=== PATIENT | male | born 1955 | race Caucasian/White ===

== ENCOUNTER 2021-09-02 08:03 | Day surgery (SDC) | payer MEDICARE, MEDICAID, SELFPAY ==
--- NOTE | ~2021-09-02 | US_ITS ---
EXAMINATION: ULTRASOUND-GUIDED PARACENTESIS CLINICAL INFORMATION: Ascites COMPARISON: None TECHNIQUE: Procedure risks and benefits including bleeding, infection and low blood pressure were discussed with the patient and informed consent was obtained. The right lower quadrant was prepped and draped in the usual sterile fashion. The skin and soft tissues were anesthetized with 1% lidocaine plain. Using ultrasound guidance and a 5 [place] Angiocath, access to the ascitic fluid was obtained. 7.6 L of clear yellow fluid was removed. Diagnostic specimen was sent for cell count, Gram stain, culture and cytology. FINDINGS: There is a large amount of ascites. US/US paracentesis abd w/image IMPRESSION: Ultrasound-guided paracentesis.
[2021-09-02 08:36] LABS: MANUAL DIFF FLAG NO
[2021-09-02 08:38] LABS: Basophils Percent Auto 0.6 % (0-2); Eosinophils Absolute Auto 0.1 X10*3/uL (0.0-0.4); Eosinophils Percent Auto 1.5 % (0-4); Hematocrit 36.7 % (42-52); Hemoglobin 11.9 g/dl (14.0-18.0); Imm Gran Abs Auto 0.02 X10*3/uL (0.00-0.03); Imm Gran Pct Auto 0.4 % (0.0-0.4); Lymphocytes Absolute Auto 1.2 X10*3/uL (1.2-4.9); Lymphocytes Percent Auto 21.9 % (20-40); Mean Corpuscular HGB Conc 32.4 g/dl (31.0-36.0); Mean Corpuscular Hemoglobin 31.5 pg (27.0-33.0); Mean Corpuscular Volume 97.1 fL (80-98); Mean Platelet Volume 9.6 fL (9.4-12.4); Monocytes Absolute Auto 0.8 X10*3/uL (0.1-1.2); Monocytes Percent Auto 13.8 % (2-11); Neutrophils Absolute Auto 3.4 X10*3/uL (2.0-8.3); Neutrophils Percent Auto 61.8 % (45-73); Red Blood Count 3.78 X10*6/uL (4.60-5.80); Red Cell Distribution Width 17.6 % (11.0-16.0); White Blood Count 5.4 X10*3/uL (4.8-10.8)
[2021-09-02 08:45] LABS: INTERNATIONAL NORM RATIO 1.4 (0.9-1.1)
[2021-09-02 08:48] LABS: Partial Thromboplastin Time 37.1 SEC (24.1-38.0)
[2021-09-02 08:49] VITALS: BP 111/86; PULSE 89; RESP 18; TEMP 37.2; O2SAT 95; BMI 29.9
[2021-09-02 09:28] LABS: Platelet Count 63 X10*3/uL (160-400)
--- NOTE | 2021-09-02 10:29 | HO.RADPN ---
RADIOLOGY Narrative Narrative: RLQ paracentesis performed using 5 fr angiocath. L clear fluid removed. Specimen sent for noemy count, gram stain and culture and cytology.
[2021-09-02 11:24] VITALS: BP 116/78; PULSE 79; RESP 18; TEMP 36.6; O2SAT 96
[2021-09-02] MEDS: Lidocaine HCl 1 % MPF 5 ML VIAL SUBCUT (11:33)
[2021-09-02 11:35] LABS: MN% 91.3 %; PMN% 8.7 %; WBC Peritoneal Fluid 0.269 X10*3/uL
[2021-09-02 11:39] LABS: RBC Peritoneal Fluid < 0.002 X10*6/uL
[2021-09-02 11:55] VITALS: BP 96/53; PULSE 78; RESP 18; O2SAT 97
[2021-09-02 12:24] VITALS: BP 103/61; PULSE 74; RESP 18; TEMP 36.9; O2SAT 97
[2021-09-02 13:04] LABS: Basophils Peritoneal Fl 0 %; Eosinophils Peritoneal Fl 0 %; Lymphocyte Peritoneal Fl 18 %; Monocytes Peritoneal Fl 41 %; Neutrophils Peritoneal Fluid 3 %; Other Peritioneal Fl 38 %
[2021-09-02 13:05] LABS: BF Shift QC OK YES; Man Diluent Bkgrd OK YES
== END 2021-09-02 13:16 | disposition home or self-care (01) ==
PROVIDERS: Visit Provider Radiology Diagnostic Radiology
DX: R18.8 Other ascites (principal); I10 Essential (primary) hypertension; J44.9 Chronic obstructive pulmonary disease, unspecified; Z79.899 Other long term (current) drug therapy
CPT/HCPCS: 36415; 49083; 85025; 85610; 85730; 87070; 87073; 87205; 88112; 89051

== ENCOUNTER 2021-09-30 06:23 | Emergency (ER) | payer MEDICARE, MEDICAID, SELFPAY ==
--- NOTE | ~2021-09-30 | XR_ITS ---
EXAMINATION: XR CHEST CLINICAL INFORMATION: General with hypoxia. Rule out aspiration COMPARISON: None TECHNIQUE: AP portable view of the chest was obtained. FINDINGS: There is elevation of the left hemidiaphragm with what appears to be some bilateral discoid scarring or atelectasis. On the provided film I cannot be sure there is some airspace disease at the left base. There is an old fracture involving the right clavicle. XR/XR chest 1V IMPRESSION: Left hemidiaphragm elevation with questionable left base disease. Comparison with outside studies would be of help in evaluation chronicity of the above findings.
[2021-09-30 06:36] VITALS: BP 104/49; BP 115/70; PULSE 74; RESP 19; TEMP 36.6; O2SAT 92; BMI 34.6
--- NOTE | 2021-09-30 06:37 | ECG_ITS ---
Test Reason : sob Blood Pressure : / mmHG Vent. Rate : 073 BPM Atrial Rate : 073 BPM P-R Int : 162 ms QRS Dur : 088 ms QT Int : 444 ms P-R-T Axes : 057 -06 073 degrees QTc Int : 489 ms Sinus rhythm with Premature atrial complexes Prolonged QT Low voltage QRS Nonspecific ST abnormality Anterior leads Abnormal ECG No previous ECGs available Referred By: Enmanuel Muhammad Electronically Signed By:TARUN GARCIA MD
--- NOTE | 2021-09-30 06:39 | ED_ITS ---
HPI - SOB/Dyspnea General Chief Complaint: Dyspnea Stated Complaint: SOB Time Seen by Provider: 09/30/21 06:37 Source: patient Mode of arrival: EMS Limitations: other (Patient has dysarthric speech which is difficult to comprehend) History of Present Illness HPI Narrative: 66-year-old male who presents emergency department for evaluation of shortness of breath and hypoxia. The information came from the paramedics. The patient was drinking water and then began to cough and choke. After choking, the patient became hypoxic with O2 saturations as low as 88% on room air. Patient was placed on 4 L of oxygen via nasal cannula his O2 saturation came up to 93%. There was no reported illness prior to the patient choking on water. The patient is in a long-term care facility. He has dysarthric speech which is very difficult to comprehend. He has no complaints. Does not appear to be in distress. The following information was on the universal transfer form: Resident woke up with decreased oxygen saturation. Patient is not on chronic oxygen management. O2 saturation 92% with 4 L nasal cannula with increased respirations when titrating oxygen saturation could not be maintained. Blind in 1 eye. Crush medications and nectar thickened fluids. COVID vaccinated. Incontinent. MOLST form reviewed: Patient is a full code, intubation and ventilation Patient is a resident at [facility], PCP is Theresa Brooks. Related Data Previous Rx's Medication Instructions Recorded cefuroxime axetil 500 mg tablet 500 mg PO Q12H 5 Days #10 tab 09/30/21 Allergies Allergy/AdvReac Type Severity Reaction Status Date / Time No Known Allergies Allergy Verified 09/02/21 08:12 Review of Systems Review of Systems: Yes Other (Limited secondary dysarthric speech which is difficult to comprehend) Neurologic: Reports Abnormal speech present (Dysarthric speech) [facility] Past Medical History [facility] Narrative: Past medical history: Schizoaffective disorder, traumatic brain injury, depression, right-sided hemiplegia, COPD, GERD, BPH, ataxia, hypertension, thrombocytopenia, dysphagia oral pharyngeal phase, left eye blindness. Social history: The patient is a resident of [facility]. He denies tobacco, alcohol and drug use. Social History Social History Alcohol intake: never Patient Tobacco Use Status: Never used Tobacco Use of substances other than those prescribed or required for medical reasons: No Advance Directives: No Advance Directives Information Provided: Yes Physical Exam Vital Signs: Vital Signs: Last Vital Signs Temp 98.0 F 09/30/21 07:41 Pulse 71 09/30/21 07:41 Resp 18 09/30/21 07:41 BP 107/71 09/30/21 07:41 Pulse Ox 94 09/30/21 07:41 Body Mass Index 34.6 Const: Other: Awake, alert, male patient, slow, dysarthric speech which is difficult to comprehend, he does answer questions appropriately, he does not appear to be in distress. HENMT: Head: Yes normal to inspection, Yes normocephalic and Yes atraumatic Ears: external ears normal General nose exam: Normal external nose present Face and sinus: Yes normal facial exam Mouth: other (Dry mucous membrane) Throat: Yes posterior oropharynx normal Eyes: Other: The patient is blind in his left eye Neck: Neck: Yes normal visual inspection, Yes no lymphadenopathy, Yes trachea midline and Yes supple Chest: Chest palpation & inspection: normal inspection of the chest and normal palpation of entire chest wall Resp: Other: Breath sounds are symmetric bilaterally, the patient has rales at both bases and diffuse rhonchi with no wheezing Cardio: Rate: regular rate Rhythm: regular rhythm Heart sounds: S1 normal heart sound present, S2 normal heart sound present and no murmurs GI: Inspection: Yes normal to inspection Palpation (GI): Soft to palpation, nontender and no guarding Auscultation: normal bowel sounds : General: Yes no CVA tenderness Back/Spine/Pelvis: Back: no CVA tenderness Skin: General skin exam: no rashes or lesions noted Neuro: Other: Patient's left eye is blind Cognition (Neuro): normal cognition Speech: Abnormal speech present (Dysarthric speech) Motor exam (neuro): Other motor observations present (Right upper and right lower extremity weakness compared to left) Extrem: Other: 2+ pitting edema bilaterally symmetric Psych: Appearance: grossly normal Affect: normal affect Attitude: cooperative Course Course Course Narrative: 66-year-old male brought to emergency department by ambulance from his long-term care facility for shortness of breath and hypoxia. The fac ility transfer note states the patient woke up short of breath with O2 saturations in the 88% range, paramedics however report that the patient may have aspirated after drinking this morning. Patient's vital signs revealed that he was afebrile with a temperature of 98?. Blood pressure was 104/49, respiratory rate was 19, pulse was 74 and O2 saturation was 92% on room air. Lung exam revealed rales at the bases with diffuse rhonchi. Extremity exam reveals 2+ pitting edema. Will obtain the following: CBC, CMP, BNP, COVID-19, lactic acid, lipase, troponin, urinalysis blood cultures x2. EKG and chest x- ray will also be obtained 09: Laboratory evaluation revealed a normal WBC of 4900. [place] [address], this is chronic. Bicarb was elevated at 31. BNP was only 63. High sensitivity troponin was detectable at 4.2 but not elevated. Urinalysis revealed 1+ blood, 3+ leukocyte esterase. Microscopic revealed 0-2 rbc's, 15-29 WBCs and 3+ bacteria. Chest x-ray revealed a elevated left hemidiaphragm, on my review of this x-ray do not see anything that looks like an acute pneumonia. The patient has not required any oxygen since being here in the emerg ency department. He does not appear to be in respiratory distress that I do not see any obvious pneumonia at this time on the patient's chest x-ray. The patient's laboratory evaluation is consistent with his baseline. The patient does have positive urinalysis, 29 WBCs per high-power field and 3+ bacteria. The patient states that he has noted painful urination and frequency however again it is hard to understand his speech secondary to his dysarthria. Given these findings the patient was given ceftriaxone 1 g IV. The patient will be started on cefuroxime 500 mg twice a day for 5 days. The patient will be discharged back to his care facility. MDM - SOB/Dyspnea Lab Data Result diagrams: 09/30/21 06:54 09/30/21 06:54 Labs: Lab Results 09/30/21 09/30/21 09/30/21 Range/Units 06:54 06:54 06:54 WBC 4.9 (4.8-10.8) X10*3/uL RBC 3.45 L (4.60-5.80) X10*6/uL Hgb 11.6 L (14.0-18.0) g/dl Hct 35.4 L (42.0-52.0) % MCV 102.6 H (80.0-98.0) fL MCH 33.6 H (27.0-33.0) pg MCHC 32.8 (31.0-36.0) g/dl RDW 18.6 H (11.0-16.0) % Plt Count 59 L (160-400) X10*3/uL MPV 9.5 (9.4-12.4) fL Immature Gran % (Auto) 0.6 H (0.0-0.4) % Neut % (Auto) 59.5 (45-73) % Lymph % (Auto) 26.7 (20-40) % Pender % (Auto) 11.2 H (2-11) % Eos % (Auto) 1.4 (0-4) % Baso % (Auto) 0.6 (0-2) % Lymph # (Auto) 1.3 (1.2-4.9) X10*3/uL Pender # (Auto) 0.6 (0.1-1.2) X10*3/uL Eos # (Auto) 0.1 (0.0-0.4) X10*3/uL Baso # (Auto) 0.0 (0.0-0.2) X10*3/uL Abs Immat Gran (auto) 0.03 (0.00-0.03) X10*3/uL Absolute Neuts (auto) 2.9 (2.0-8.3) x10*3/uL Absolute Nucleated RBC 0.000 (0.0-0.012) X10*3/uL Nucleated RBC % (auto) 0.0 (0.0-0.2) /100WBC Sodium 140 (135-145) mmol/L Potassium 3.7 (3.3-5.1) mmol/L Chloride 105 (96-108) mmol/L Carbon Dioxide 31 H (22-29) mmol/L Anion Gap 8 L (12-20) BUN 14 (9-16) mg/dL Creatinine 0.90 (0.5-1.4) mg/dL Estim Creat Clear Calc 107.5 Estimated GFR > 60 Random Glucose 87 (60-115) mg/dL Lactic Acid 1.3 (0.5-2.0) mmol/L Calcium 7.6 L (8.4-10.2) mg/dL Total Bilirubin 2.4 H (0.0-1.0) mg/dL AST 40 H (5-37) U/L ALT 16 (0-40) U/L Alkaline Phosphatase 72 (39-117) U/L Troponin I High Sens (<3.5-35.0) ng/L B-Natriuretic Peptide (<100) pg/mL Total Protein 7.3 (6.5-8.0) g/dL Albumin 2.2 L (3.5-5.0) g/dL Lipase 46 (8-78) U/L Urine Color Urine Appearance Urine pH (5.0-8.0) Ur Specific [place] (1.005-1.025) Urine Protein (NEG-TRACE) MG/DL Urine Glucose (UA) (NEG) MG/DL Urine Ketones (NEG) MG/DL Urine Blood (NEG) Urine Nitrite (NEG) Ur Leukocyte Esterase (NEG) Urine RBC (0) /HPF Urine WBC (0-4) /HPF Ur Squamous Epith Cells /LPF Triple Phos Crystals /LPF Urine Bacteria /LPF COVID-19 (WENDY) (Negative) COVID-19 Clin Com 09/30/21 09/30/21 09/30/21 Range/Units 06:54 07:33 08:50 WBC (4.8-10.8) X10*3/uL RBC (4.60-5.80) X10*6/uL Hgb (14.0-18.0) g/dl Hct (42.0-52.0) % MCV (80.0-98.0) fL MCH (27.0-33.0) pg MCHC (31.0-36.0) g/dl RDW (11.0-16.0) % Plt Count (160-400) X10*3/uL MPV (9.4-12.4) fL Immature Gran % (Auto) (0.0-0.4) % Neut % (Auto) (45-73) % Lymph % (Auto) (20-40) % Pender % (Auto) (2-11) % Eos % (Auto) (0-4) % Baso % (Auto) (0-2) % Lymph # (Auto) (1.2-4.9) X10*3/uL Pender # (Auto) (0.1-1.2) X10*3/uL Eos # (Auto) (0.0-0.4) X10*3/uL Baso # (Auto) (0.0-0.2) X10*3/uL Abs Immat Gran (auto) (0.00-0.03) X10*3/uL Absolute Neuts (auto) (2.0-8.3) x10*3/uL Absolute Nucleated RBC (0.0-0.012) X10*3/uL Nucleated RBC % (auto) (0.0-0.2) /100WBC Sodium (135-145) mmol/L Potassium (3.3-5.1) mmol/L Chloride (96-108) mmol/L Carbon Dioxide (22-29) mmol/L Anion Gap (12-20) BUN (9-16) mg/dL Creatinine (0.5-1.4) mg/dL Estim Creat Clear Calc Estimated GFR Random Glucose (60-115) mg/dL Lactic Acid (0.5-2.0) mmol/L Calcium (8.4-10.2) mg/dL Total Bilirubin (0.0-1.0) mg/dL AST (5-37) U/L ALT (0-40) U/L Alkaline Phosphatase (39-117) U/L Troponin I High Sens 4.2 (<3.5-35.0) ng/L B-Natriuretic Peptide 63 (<100) pg/mL Total Protein (6.5-8.0) g/dL Albumin (3.5-5.0) g/dL Lipase (8-78) U/L Urine Color DK YELLOW Urine Appearance HAZY Urine pH 6.5 (5.0-8.0) Ur Specific [place] 1.010 (1.005-1.025) Urine Protein TRACE (NEG-TRACE) MG/DL Urine Glucose (UA) NEG (NEG) MG/DL Urine Ketones 5 (NEG) MG/DL Urine Blood 1+ H (NEG) Urine Nitrite NEG (NEG) Ur Leukocyte Esterase 3+ H (NEG) Urine RBC 0-2 (0) /HPF Urine WBC 15-29 H (0-4) /HPF Ur Squamous Epith Cells TRACE /LPF Triple Phos Crystals TRACE /LPF Urine Bacteria 3+ /LPF COVID-19 (WNEDY) Negative (Negative) COVID-19 Clin Com See Note Discharge Plan Discharge Clinical Impression: Aspiration into airway Qualifiers: Encounter type: initial encounter Qualified Code(s): T17.908A - Unspecified foreign body in respiratory tract, part unspecified causing other injury, initial encounter Urinary tract infection Qualifiers: Urinary tract infection type: site unspecified Hematuria presence: without hematuria Qualified Code(s): N39.0 - Urinary tract infection, site not specified Patient Disposition: [facility] Instructions: Urinary Tract Infection in Men (ED) Additional Instructions: Your chest x-ray revealed an elevated left hemidiaphragm but I do not see anything that looks like pneumonia on your x-ray at this time. You did not require any oxygen here in the emergency department. Your laboratory evaluation was consistent with your baseline labs. Your COVID-19 test was negative. Your urinalysis revealed 1+ blood and 3+ leukocyte esterase. Your microscopic evaluation revealed up to 29 white blood cells and 3+ bacteria. You told me that you did have burning with urination and you are urinating more frequently therefore I am going to treat you for urinary tract infection. You received ceftriaxone 1 g IV here in the emergency department Take Ceftin (cefuroxime) 500 mg, 1 pill every 12 hours for 5 days. I am discharging you back to your long-term nursing facility and the doctor there can check your urine culture results and decide if you need any change in your antibiotics. Follow-up with your doctor in 2 days. Please return to the emergency department if your symptoms get worse or if you develop any symptoms that are concerning to you. Prescriptions: New cefuroxime axetil 500 mg tablet 500 mg PO Q12H 5 Days Qty: 10 RF: 0
[2021-09-30 07:04] LABS: Basophils Percent Auto 0.6 % (0-2); Eosinophils Absolute Auto 0.1 X10*3/uL (0.0-0.4); Eosinophils Percent Auto 1.4 % (0-4); Hematocrit 35.4 % (42.0-52.0); Hemoglobin 11.6 g/dl (14.0-18.0); Imm Gran Abs Auto 0.03 X10*3/uL (0.00-0.03); Imm Gran Pct Auto 0.6 % (0.0-0.4); Lymphocytes Absolute Auto 1.3 X10*3/uL (1.2-4.9); Lymphocytes Percent Auto 26.7 % (20-40); MANUAL DIFF FLAG NO; Mean Corpuscular HGB Conc 32.8 g/dl (31.0-36.0); Mean Corpuscular Hemoglobin 33.6 pg (27.0-33.0); Mean Corpuscular Volume 102.6 fL (80.0-98.0); Mean Platelet Volume 9.5 fL (9.4-12.4); Monocytes Absolute Auto 0.6 X10*3/uL (0.1-1.2); Monocytes Percent Auto 11.2 % (2-11); Neutrophils Absolute Auto 2.9 x10*3/uL (2.0-8.3); Neutrophils Percent Auto 59.5 % (45-73); Red Blood Count 3.45 X10*6/uL (4.60-5.80); Red Cell Distribution Width 18.6 % (11.0-16.0); White Blood Count 4.9 X10*3/uL (4.8-10.8)
[2021-09-30 07:05] LABS: Platelet Count 59 X10*3/uL (160-400)
[2021-09-30 07:20] LABS: Lactic Acid 1.3 mmol/L (0.5-2.0)
[2021-09-30 07:23] LABS: COVID-19 Test Negative (Negative)
[2021-09-30 07:33] LABS: Alanine Aminotransferase 16 U/L (0-40); Albumin Level 2.2 g/dL (3.5-5.0); Alkaline Phosphatase 72 U/L (39-117); Aspartate Amino Transferase 40 U/L (5-37); Bilirubin Total 2.4 mg/dL (0.0-1.0); Blood Urea Nitrogen 14 mg/dL (9-16); Calcium 7.6 mg/dL (8.4-10.2); Creatinine Clr Calc Pharmacy 107.5; Estimated Glomerular Filt Rate > 60; Glucose Random 87 mg/dL (60-115); Lipase 46 U/L (8-78); Total Protein 7.3 g/dL (6.5-8.0)
--- NOTE | 2021-09-30 07:39 | PC.NURSE ---
pt a/o x 3no sob/shruthi noted skin pink warm dry speaks in full sentences.. abd non-tender, hard, distended. haleigh lower ext 1-2+ pittting edema.
[2021-09-30 07:41] VITALS: BP 107/71; PULSE 71; RESP 18; TEMP 36.7; O2SAT 94
[2021-09-30 07:46] LABS: Anion Gap 8 (12-20); Carbon Dioxide 31 mmol/L (22-29); Chloride 105 mmol/L (96-108); Potassium 3.7 mmol/L (3.3-5.1); Sodium 140 mmol/L (135-145)
[2021-09-30 07:58] LABS: B Type Natriuretic Peptide 63 pg/mL (<100); Troponin-I High Sensitivity 4.2 ng/L (<3.5-35.0)
[2021-09-30 08:59] LABS: Appearance Urine HAZY; Color Urine DK YELLOW; Glucose Urine UA NEG (NEG); Leukocyte Esterase Urine 3+ (NEG); Nitrite Urine NEG (NEG); PH 6.5 (5.0-8.0); UACC Culture Trigger YES; Urine Blood 1+ (NEG); Urine Ketones 5 MG/DL (NEG); Urine Protein TRACE MG/DL (NEG-TRACE)
[2021-09-30 09:09] LABS: Bacteria Urine 3+ /LPF; RBC Urine 0-2 /HPF (0); Squamous Epithelial Cell Urine TRACE /LPF; Triple Phosphate Crystal Urine TRACE /LPF
[2021-09-30 09:29] VITALS: BP 100/66; PULSE 63; RESP 16; TEMP 36.4; O2SAT 95
[2021-09-30] MEDS: cefTRIAXone sodium 1 GM in 0.9 % Sodium Chloride 50 ML IV (09:46)
[2021-09-30 09:47] VITALS: BP 108/63; PULSE 72; RESP 20; O2SAT 94
[2021-09-30 10:26] VITALS: BP 108/63; PULSE 68; RESP 14; TEMP 36.4; O2SAT 95
--- NOTE | 2021-09-30 10:31 | PC.NURSE ---
rn to rn report given to mireya Louiern). pt aware of plan of care for transfer to facility.
== END 2021-09-30 10:33 ==
PROVIDERS: Emergency Provider Emergency Medicine Emergency Medical Services
DX: T17.998A Other foreign object in respiratory tract, part unspecified causing other injury, initial encounter (principal); N39.0 Urinary tract infection, site not specified; R47.1 Dysarthria and anarthria; I10 Essential (primary) hypertension; J44.9 Chronic obstructive pulmonary disease, unspecified; G81.91 Hemiplegia, unspecified affecting right dominant side; H54.62 Unqualified visual loss, left eye, normal vision right eye; X58.XXXA Exposure to other specified factors, initial encounter; Y93.9 Activity, unspecified; Y92.9 Unspecified place or not applicable; Y99.9 Unspecified external cause status; Z20.822 Contact with and (suspected) exposure to COVID-19; Z87.820 Personal history of traumatic brain injury
CPT/HCPCS: 36415; 71045; 80053; 81001; 81003; 83605; 83690; 83880; 84484; 85025; 87040; 87086; 87088; 87186; 87635; 93005; 96365; 99285; J0696